=== PATIENT | female | born 1980 | race Caucasian/White ===

== ENCOUNTER 2025-04-23 10:31 | Emergency (ER) | payer OTHER ==
[~2025-04-23] VITALS: Ht 160 cm; Wt 70.0 kg
[2025-04-23 10:35] VITALS: O2SAT 100
[2025-04-23] MEDS: METOCLOPRAMIDE HCL 10MG/2ML VIAL IV ONE (12:00)
[2025-04-23 12:01] LABS: BASOPHILS % 0.6 % (0.0-2.0); EOSINOPHILS % 0.3 % (0.0-5.0); HEMATOCRIT. 37.1 % (36.0-48.0); HEMOGLOBIN. 12.1 g/dL (12.0-16.0); LYMPHOCYTES % 18.9 % (20.0-50.0); MEAN PLATELET VOLUME 9.6 fl (7.4-10.4); MONOCYTES % 7.8 % (2.0-8.0); NEUTROPHILS % 72.4 % (40.0-76.0); PLATELET 364 x1000/uL (130-400); RED BLOOD CELL COUNT 4.16 mill/uL (4.2-5.4); RED CELL DISTRIBUTION WIDTH 14.8 % (11.6-14.6)
[2025-04-23 12:11] LABS: CREATININE 0.6 mg/dL (0.6-1.0)
[2025-04-23 12:12] LABS: TROPONIN I HIGH SENSITIVITY < 4 ng/L (3.0-34); UREA NITROGEN BLOOD 7 mg/dL (9-23)
[2025-04-23 12:14] LABS: ASPARTATE AMINOTRANSFERASE 16 IU/L (<34); BILIRUBIN DIRECT < 0.1 mg/dL (<=3.0); BILIRUBIN TOTAL 0.3 mg/dL (0.1-1.0); PROTEIN TOTAL 8.6 g/dL (6.0-8.3)
[2025-04-23 12:16] LABS: HCG SCREEN NEGATIVE
[2025-04-23] MEDS: LACTATED RINGERS 1,000 ML IV SCH (12:33)
[2025-04-23] MEDS: ACETAMINOPHEN 1000MG/100ML 100 ML IV ONE (12:33)
[2025-04-23] MEDS ORDERED: FAMO-134 MT (12:51)
[2025-04-23] MEDS ORDERED: ONDA-239 PO (12:51)
[2025-04-23 13:40] VITALS: BP 146/89; PULSE 96; RESP 14; TEMP 36.7; O2SAT 100
== END 2025-04-23 13:50 | disposition home or self-care (01) ==
LOC: ER 10:31
DX: R07.9 Chest pain, unspecified (principal); R11.2 Nausea with vomiting, unspecified; Z90.49 Acquired absence of other specified parts of digestive tract; Z79.899 Other long term (current) drug therapy
CPT/HCPCS: 99285; 96374; 71045; 96375; 80076; 80048; 84703; 83690; 85025; 84484; 36415; 93005; J2765; J0131